=== PATIENT | male | born 1995 | race Caucasian/White ===

== ENCOUNTER 2019-04-23 00:32 | Emergency (ER) | payer BC, OTHER ==
[2019-04-23 01:47] VITALS: BP 129/77
[2019-04-23] MEDS ORDERED: Morphine 2 MG/ML Syringe IVPUSH ONE (02:16)
--- NOTE | 2019-04-23 02:21 | EDM.PDOC ---
ED HPI GENERAL MEDICAL PROBLEM - General Chief Complaint: Head Injury Stated Complaint: SWELLING FOREHEAD, BLURRY VISION PER. CONCUSSION Time Seen by Provider: 04/23/19 02:10 Source of Information: Reports: Patient History Limitations: Reports: No Limitations - History of Present Illness INITIAL COMMENTS - FREE TEXT/NARRATIVE: This 23 yo male patient reports to the ED due to a fall. The patient reports he slipped on a car joann while in the garage. The patient is not too sure what he landed on. The patient reports when her "woke up" he was on the floor of the garage with swelling to his face and blood on his shirt. Onset: Today Location: Reports: Head, Face Quality: Reports: Other Severity: Moderate Improves with: Reports: None Worsens with: Reports: None Context: Reports: Trauma Associated Symptoms: Reports: Other Right Frontal Head Pain Score (Numeric/FACES): 8 - Related Data Allergies Allergy/AdvReac Type Severity Reaction Status Date / Time bee stings Allergy Swelling Uncoded 04/23/19 01:29 Home Meds: Home Meds Cromberg Carbonate 900 mg PO BEDTIME 04/23/19 [History] hydrOXYzine HCl [hydrOXYzine] 25 mg PO BID 04/23/19 [History] Past Medical History Psychiatric History: Reports: Anxiety, Depression Social & Family History - Family History Family Medical History: Noncontributory - Tobacco Use Smoking Status *Q: Unknown Ever Smoked Second Hand Smoke Exposure: No - Caffeine Use Caffeine Use: Reports: Coffee, Tea - Recreational Drug Use Recreational Drug Use: Yes Recreational Drug Type: Reports: Marijuana/Hashish Recreational Drug Use Frequency: Not Used In Over 3 Months ED ROS GENERAL - Review of Systems Review Of Systems: ROS reveals no pertinent complaints other than HPI. ED EXAM, HEAD INJURY - Physical Exam Exam: See Below Exam Limited By: No Limitations General Appearance: Alert, WD/WN, Moderate Distress Head: Scalp Abrasions, Scalp Hematoma, Facial Swelling, Sinus Tenderness, Facial Tenderness Nexus Criteria: No: Posterior, Midline Cervical Tenderness, Evidence of Intoxication, Altered Level of Consciousness, Focal Neurological Deficit, Painful Distraction Injuries Eyes: Left Eye: EOMI, PERRL, Other (Swollen right eye (unable to open eye)) Ears: Normal External Exam, Normal Canal, Hearing Grossly Normal, Normal TMs Nose: Dried Blood Throat/Mouth: Normal Inspection, Normal Lips, Normal Teeth, Normal Gums, Normal Oropharynx, Normal Voice, No Airway Compromise Neck: Non-Tender, Full Range of Motion, Normal Alignment, Normal Inspection Respiratory: No Respiratory Distress, Lungs Clear, Normal Breath Sounds, No Accessory Muscle Use, Chest Non-Tender Cardiovascular: Normal Peripheral Pulses, Regular Rate, Rhythm, No Edema, No Gallop, No JVD, No Murmur, No Rub GI/Abdominal Exam: Normal Bowel Sounds, Soft, Non-Tender, No Organomegaly, No Distention, No Abnormal Bruit, No Mass (Male) Exam: Deferred Rectal (Males) Exam: Deferred Back Exam: Full Range of Motion, Normal Inspection, NT Extremities: Normal Inspection, Normal Range of Motion, Non-Tender, No Pedal Edema, Normal Capillary Refill Neurologic: die mounter II-XII nml As Tested, No Motor/Sensory Deficits, Alert, Normal Mood/Affect, Oriented x 3 Skin: Normal Color, Warm/Dry Course - Vital Signs Last Recorded V/S: Last Vital Signs Temp 37.1 C 04/23/19 01:38 Pulse 75 04/23/19 01:38 Resp 16 04/23/19 01:38 BP 129/77 04/23/19 01:38 Pulse Ox 98 04/23/19 01:38 - Orders/Labs/Meds Orders: Active Orders 24 hr Category Date Time Status Head wo Cont [CT] Urgent Exams 04/23/19 01:32 Taken Max Facial Sinus wo Cont [CT] Urgent Exams 04/23/19 01:33 Taken Meds: Medications Discontinued Medications Generic Name Dose Route Start Last Admin Trade Name Freq PRN Reason Stop Dose Admin Ceftriaxone Sodium 1,000 mg 04/23/19 02:40 Rocephin IVPUSH 04/23/19 02:41 ONETIME ONE Morphine Sulfate 2 mg 04/23/19 02:16 04/23/19 02:25 Morphine IVPUSH 04/23/19 02:17 2 mg ONETIME ONE Administration Departure - Departure Time of Disposition: 02:45 Disposition: Home, Self-Care 01 Condition: Fair Clinical Impression: Concussion injury of brain Nasal bone fracture Qualifiers: Encounter type: initial encounter Fracture type: open Qualified Code(s): S02.2XXB - Fracture of nasal bones, initial encounter for open fracture Contusion of face Qualifiers: Encounter type: initial encounter Qualified Code(s): S00.83XA - Contusion of other part of head, initial encounter - Discharge Information *PRESCRIPTION DRUG MONITORING PROGRAM REVIEWED*: Not Applicable *COPY OF PRESCRIPTION DRUG MONITORING REPORT IN PATIENT VANE: Not Applicable Instructions: Concussion, Adult, [id number], Nasal Fracture, Qasv-[id number]-[id number], Hematoma, [id number] Forms: ED Department Discharge Care Plan Goals: The patient and family were advised of the examination and CT results during the visit. The patient was given an IV dose of Morphine (for pain) and an IV dose of Rocephin (antibiotic). The patient was discharged with a script for Keflex (500 mg) #30 to take 1 by mouth 3 times per day for 10 days. If the patient has any additional symptoms or concerns, the patient should either return to the emergency department or visit his primary care facility. - My Orders Last 24 Hours: My Active Orders 04/23/19 01:32 Head wo Cont [CT] Urgent 04/23/19 01:33 Max Facial Sinus wo Cont [CT] Urgent - Assessment/Plan Last 24 Hours: My Active Orders 04/23/19 01:32 Head wo Cont [CT] Urgent 04/23/19 01:33 Max Facial Sinus wo Cont [CT] Urgent
[2019-04-23] MEDS ORDERED: cefTRIAXone 500 MG Vial IVPUSH ONE (02:40)
== END 2019-04-23 03:05 | disposition home or self-care (01) ==
LOC: DL.ED 00:32
DX: S06.0X9A Concussion with loss of consciousness of unspecified duration, initial encounter (principal); S02.2XXB Fracture of nasal bones, initial encounter for open fracture; S00.03XA Contusion of scalp, initial encounter; Z91.030 Bee allergy status; W01.0XXA Fall on same level from slipping, tripping and stumbling without subsequent striking against object, initial encounter
CPT/HCPCS: 70450; 70486; 96374; 96375; 99284; J0696; J2270

== ENCOUNTER 2020-06-02 08:44 | Emergency (ER) | payer BC, OTHER ==
[2020-06-02 08:59] VITALS: BP 124/79; PULSE 96
--- NOTE | 2020-06-02 09:10 | EDM.PDOC ---
ED HPI GENERAL MEDICAL PROBLEM - General Chief Complaint: Back Pain or Injury Stated Complaint: BACK PAIN Time Seen by Provider: 06/02/20 09:09 Source of Information: Reports: Patient, RN, RN Notes Reviewed History Limitations: Reports: No Limitations - History of Present Illness INITIAL COMMENTS - FREE TEXT/NARRATIVE: The patient presents to the ED via personal vehicle with complaints of right mid-back pain. He states this pain began suddenly upon awakening this morning 06/02/20. He describes the pain as 10/10 sharp, cramping in nature which radiates up and down his back with twisting movement. He states the pain as a 4/10 while at rest. He denies experiencing this type of pain before. He denies any recent or past injury to the area, or any recent heavy lifting. He denies hematuria, dysuria, or changes in his bladder patterns. He has not taken any medications for this problem. - Related Data Allergies Allergy/AdvReac Type Severity Reaction Status Date / Time bee stings Allergy Swelling Uncoded 06/02/20 08:59 Past Medical History - Past Health History Medical/Surgical History: Denies Medical/Surgical History Psychiatric History: Reports: Anxiety, Depression Social & Family History - Family History Family Medical History: Noncontributory - Tobacco Use Smoking Status *Q: Never Smoker - Caffeine Use Caffeine Use: Reports: Energy Drinks - Recreational Drug Use Recreational Drug Use: Yes Recreational Drug Type: Reports: Marijuana/Hashish ED ROS GENERAL - Review of Systems Review Of Systems: Comprehensive ROS is negative, except as noted in HPI. ED EXAM,LOWER BACK PAIN/INJURY - Physical Exam Exam: See Below Exam Limited By: No Limitations General Appearance: Alert, WD/WN, No Apparent Distress Throat/Mouth: Normal Inspection, Normal Voice, No Airway Compromise Neck: Normal Inspection, Supple, Non-Tender Respiratory/Chest: Lungs Clear, Normal Breath Sounds Cardiovascular: Regular Rate, Rhythm, No Edema, No Gallop, No Murmur, No Rub GI/Abdominal: Normal Bowel Sounds, Soft, Non-Tender, No Distention, No Mass (Male) Exam: Deferred Rectal (Males) Exam: Deferred Back Exam: Normal Inspection, Muscle Spasm Extremities: Normal Range of Motion, Non-Tender, No Pedal Edema Neurological: Alert, Normal Mood/Affect, CN II-XII Intact, Normal Gait, No Motor/Sensory Deficits, Oriented x 3 Skin Exam: Warm, Dry, Intact, Normal Color, No Rash. No: Erythema, Petechiae, Rash Course - Vital Signs Last Recorded V/S: Last Vital Signs Temp 98.7 F 06/02/20 08:54 Pulse 96 06/02/20 08:54 Resp 14 06/02/20 08:54 BP 124/79 06/02/20 08:54 Pulse Ox 98 06/02/20 08:54 - Orders/Labs/Meds Labs: Laboratory Tests 06/02/20 Range/Units 09:00 Urine Color Yellow (YELLOW) Urine Appearance Slightly cloudy (CLEAR) Urine pH 6.5 (5.0-9.0) Ur Specific Isabella 1.025 (1.005-1.030) Urine Protein Negative (NEGATIVE) Urine Glucose (UA) Negative (NEGATIVE) Urine Ketones Negative (NEGATIVE) Urine Occult Blood Negative (NEGATIVE) Urine Nitrite Negative (NEGATIVE) Urine Bilirubin Negative (NEGATIVE) Urine Urobilinogen 0.2 (0.2-1.0) mg/dL Ur Leukocyte Esterase Negative (NEGATIVE) Departure - Departure Time of Disposition: 09:35 Disposition: Home, Self-Care 01 Condition: Good Clinical Impression: Muscle spasm of back - Discharge Information *PRESCRIPTION DRUG MONITORING PROGRAM REVIEWED*: Not Applicable *COPY OF PRESCRIPTION DRUG MONITORING REPORT IN PATIENT VANE: Not Applicable Instructions: Muscle Cramps and Spasms, [id number], Muscle Strain, [id number] Forms: ED Department Discharge Additional Instructions: Rx: Flexeril Apply heat to the back for 20 minutes on, every few hours. Sepsis Event Note (ED) - Evaluation Sepsis Screening Result: No Definite Risk - Focused Exam Vital Signs: Vital Signs Temp Pulse Resp BP Pulse Ox 06/02/20 08:54 98.7 F 96 14 124/79 98
[2020-06-02] MEDS ORDERED: Cyclobenzaprine 10 MG Tab PO ONE (09:29)
== END 2020-06-02 09:48 | disposition home or self-care (01) ==
LOC: DL.ED 08:44
DX: M62.830 Muscle spasm of back (principal); Z91.030 Bee allergy status
CPT/HCPCS: 81003; 99283; A9270

== ENCOUNTER 2023-01-14 21:55 | Emergency (ER) | payer BC, OTHER | END 2023-01-14 23:10 | disposition home or self-care (01) | LOC: DL.ED 21:55 → MERGE 21:55 → DL.ED 23:10 | DX: R07.9 Chest pain, unspecified (principal); T50.995A Adverse effect of other drugs, medicaments and biological substances, initial encounter; Z91.030 Bee allergy status | CPT/HCPCS: 93005; 99284 ==

== ENCOUNTER 2025-01-21 12:00 | Emergency (ER) | payer BC ==
[2025-01-21 12:24] LABS: APPEARANCE,URINE CLEAR (CLEAR); BILIRUBIN,URINE NEGATIVE (NEGATIVE); COLOR,URINE YELLOW (YELLOW); GLUCOSE,URINE NEGATIVE (NEGATIVE); KETONES,URINE TRACE (NEGATIVE); LEUKOCYTE ESTERASE,URINE NEGATIVE (NEGATIVE); NITRITE,URINE NEGATIVE (NEGATIVE); OCCULT BLOOD,URINE NEGATIVE (NEGATIVE); PH,URINE 7.5 (5.0-9.0); PROTEIN,URINE TRACE (NEGATIVE)
[2025-01-21 12:33] LABS: AMORPHOUS SEDIMENT,URINE FEW /HPF (NOT SEEN); BACTERIA,URINE FEW /HPF (0-FEW/HPF); EPITHELIAL CELLS,URINE RARE /HPF (NOT SEEN); MUCUS,URINE MODERATE /LPF (NOT SEEN); RBC,URINE 0-5 /HPF (0-5); WBC,URINE 0-5 /HPF (0-5/HPF)
[2025-01-21] MEDS: cefTRIAXone 500 MG, Lidocaine 1% 1 ML IM ONE (13:02)
[2025-01-21] MEDS: Take Home: Doxycycline 100 MG Cap, 4 Cap Pack PO ONE (13:04)
[2025-01-25 12:46] LABS: C.TRACHOMATIS BY TMA Negative (Negative); M GENITALIUM Negative (Negative); M GENITALIUM SOURCE Urine; N.GONORRHOEAE BY TMA Negative (Negative); SOURCE Urine
== END 2025-01-21 13:14 | disposition home or self-care (01) ==
LOC: DL.ED 12:00
DX: N45.1 Epididymitis (principal); Z91.030 Bee allergy status
CPT/HCPCS: 76870; 81001; 87491; 87563; 87591; 99284; A9270; J0696; J2003